=== PATIENT | male | born 1985 | race Two or more races ===

== ENCOUNTER 2016-06-10 15:00 | Emergency (ER) | payer SELFPAY ==
[~2016-06-10] VITALS: Ht 165.1 cm; Wt 62.6 kg
[2016-06-10 15:03] VITALS: BP 133/83
[2016-06-10] MEDS ORDERED: LIDOCAINE 1% / SOD BICARB 8.4% 20 ML VIAL. IJ ONE (15:15)
[2016-06-10] MEDS ORDERED: DIPHTH,PERTUSS(ACELL),TET TOX 0.5 ML DISP.SYRIN. VAX IM ONE (15:15)
--- NOTE | 2016-06-10 15:58 | PHYS DOC ---
Past Medical History Past Medical History: No Pertinent History Past Surgical History: No Surgical History Alcohol Use: Occasionally Drug Use: None Adult General Chief Complaint Chief Complaint: LACERATION/AVULSION HPI HPI Patient is a 30 year old male with no significant medical history who presents with right cheek contusion and laceration. Patient states he was playing soccer when somebody head butted him. Patient denies any loss of consciousness. Review of Systems Review of Systems Constitutional: Denies fever or chills [] Eyes: Denies change in visual acuity, redness, or eye pain [] HENT: Denies nasal congestion or sore throat [] Respiratory: Denies cough or shortness of breath [] Cardiovascular: No additional information not addressed in HPI [] GI: Denies abdominal pain, nausea, vomiting, bloody stools or diarrhea [] : Denies dysuria or hematuria [] Musculoskeletal: Denies back pain or joint pain [] Integument: Facial contusion and facial laceration Neurologic: Denies headache, focal weakness or sensory changes [] Endocrine: Denies polyuria or polydipsia [] Current Medications Current Medications Current Medications Medications (Trade) Dose Ordered Sig/Benji Start Time Stop Time Status Last Admin Dose Admin Diphtheria/ Tetanus/Acell Pertussis (Boostrix) 0.5 ml ONCE ONCE 06/10/16 15:15 06/10/16 15:23 DC Lidocaine/Sodium Bicarbonate (Buffered Lidocaine 1%) 20 ml 1X ONCE 06/10/16 15:15 06/10/16 15:23 DC Allergies Allergies Allergies Coded Allergies Type Severity Reaction Last Updated Verified No Known Drug Allergies 06/10/16 No Physical Exam Physical Exam Constitutional: Well developed, well nourished, no acute distress, non-toxic appearance. [] HENT: Normocephalic, atraumatic, bilateral external ears normal, oropharynx moist, no oral exudates, nose normal. [] Eyes: PERRLA, EOMI, conjunctiva normal, no discharge. [] Neck: Normal range of motion, no tenderness, supple, no stridor. [] Cardiovascular:Heart rate regular rhythm, no murmur [] Lungs & Thorax: Bilateral breath sounds clear to auscultation [] Abdomen: Bowel sounds normal, soft, no tenderness, no masses, no pulsatile masses. [] Skin: Right cheek with small contusion. There is a 2 cm laceration over the contusion. Bleeding is well controlled. Back: No tenderness, no CVA tenderness. [] Extremities: No tenderness, no cyanosis, no clubbing, ROM intact, no edema. [] Neurologic: Alert and oriented X 3, normal motor function, normal sensory function, no focal deficits noted. [] Psychologic: Affect normal, judgement normal, mood normal. [] Current Patient Data Vital Signs Vital Signs Date Time Temp Pulse Resp B/P Pulse Ox O2 Delivery O2 Flow Rate FiO2 06/10/16 15:03 97.8 70 16 99 Room Air 97.8 EKG EKG [] Radiology/Procedures Radiology/Procedures Indication: [] Right cheek laceration Procedure: The patient was placed in the appropriate position and anesthesia around the laceration was 1% buffered lidocaine adequate amount. The area was then cleaned with 20 mL of normal saline and Betadine. The laceration was closed with 5 interrupted sutures using 6. 0 Prolene. The area was covered with a Band-Aid Total repaired wound length: Approximately 2 cm Other Items: none The patient tolerated the procedure well Complications: none Course & Med Decision Making Course & Med Decision Making Pertinent Labs and Imaging studies reviewed. (See chart for details) Evaluation shows patient has right cheek contusion with a laceration over the contusion. His tetanus was not up-to-date, he received Boostrix in the ED. The laceration was closed as noted in procedures. He was provided wound care instructions as well as return precautions. Dragon Disclaimer Dragon Disclaimer This electronic medical record was generated, in whole or in part, using a voice recognition dictation system. Departure Departure Impression: Primary Impression: Facial contusion Additional Impression: Facial laceration Disposition: 01 HOME, SELF-CARE Condition: STABLE Referrals: NO PCP (PCP) Follow up with your own doctor or the emergency room in 5 days for suture removal Patient Instructions: Facial Laceration, Facial or Scalp Contusion Additional Instructions: You have a facial contusion with a laceration over the contusion, apply ice to to the area. Keep the area clean and dry. You can shower. Apply Neosporin to the area twice a day. Come back to the ED or follow up with your own doctor in 5 days for suture removal. Problem Qualifiers Primary Impression: Facial contusion Encounter type: initial encounter Qualified Code: S00.83XA - Contusion of other part of head, initial encounter Additional Impression: Facial laceration Encounter type: initial encounter Qualified Code: S01.81XA - Laceration without foreign body of other part of head, initial encounter ROSAMARIA WESTFALL APRN Jun 10, 2016 15:58
== END 2016-06-10 16:16 | disposition home or self-care (01) ==
LOC: ER 15:00
DX: S01.411A Laceration without foreign body of right cheek and temporomandibular area, initial encounter (principal); W51.XXXA Accidental striking against or bumped into by another person, initial encounter; Y93.66 Activity, soccer; Y92.89 Other specified places as the place of occurrence of the external cause; Y99.8 Other external cause status
CPT/HCPCS: 12011; 90471; 90715; 99283-25

== ENCOUNTER 2016-06-16 20:04 | Emergency (ER) | payer SELFPAY ==
[~2016-06-16] VITALS: Ht 167.6 cm; Wt 62.6 kg
[2016-06-16 20:11] VITALS: BP 144/91
--- NOTE | 2016-06-16 20:19 | PHYS DOC ---
Past Medical History Past Medical History: No Pertinent History Past Surgical History: No Surgical History Alcohol Use: Occasionally Drug Use: None Adult General Chief Complaint Chief Complaint: SUTURE/STAPLE REMOVAL [facility] HPI Patient is a 30 year old male presents emergency Department requesting sutures be removed from his right cheek. Patient laceration to his right cheek 6 days ago when he was playing soccer. He denies any complications with the laceration. Review of Systems Review of Systems Constitutional: Denies fever or chills [] Eyes: Denies change in visual acuity, redness, or eye pain [] HENT: Denies nasal congestion or sore throat [] Respiratory: Denies cough or shortness of breath [] Cardiovascular: No additional information not addressed in HPI [] GI: Denies abdominal pain, nausea, vomiting, bloody stools or diarrhea [] : Denies dysuria or hematuria [] Musculoskeletal: Denies back pain or joint pain [] Integument: Denies rash or skin lesions [] Neurologic: Denies headache, focal weakness or sensory changes [] Endocrine: Denies polyuria or polydipsia [] Allergies Allergies Allergies Coded Allergies Type Severity Reaction Last Updated Verified No Known Drug Allergies 06/10/16 No Physical Exam Physical Exam Constitutional: Well developed, well nourished, no acute distress, non-toxic appearance. [] HENT: Normocephalic, bilateral external ears normal, oropharynx moist, no oral exudates, nose normal. Approximate 2.5 cm laceration to the right cheek 5, 6-0 Prolene sutures. There is no wound margin separation, erythema, swelling or purulent drainage. Eyes: PERRLA, EOMI, conjunctiva normal, no discharge. [] Neck: Normal range of motion, no tenderness, supple, no stridor. [] Cardiovascular:Heart rate regular rhythm, no murmur [] Lungs & Thorax: Bilateral breath sounds clear to auscultation [] Abdomen: Bowel sounds normal, soft, no tenderness, no masses, no pulsatile masses. [] Skin: Warm, dry, no erythema, no rash. [] Back: No tenderness, no CVA tenderness. [] Extremities: No tenderness, no cyanosis, no clubbing, ROM intact, no edema. [] Neurologic: Alert and oriented X 3, normal motor function, normal sensory function, no focal deficits noted. [] Psychologic: Affect normal, judgement normal, mood normal. [] Current Patient Data Vital Signs Vital Signs Date Time Temp Pulse Resp B/P Pulse Ox O2 Delivery O2 Flow Rate FiO2 06/16/16 20:11 97.8 74 18 99 Room Air 97.8 EKG EKG [] Radiology/Procedures Radiology/Procedures Procedure note: 5, 6-0 Prolene stitches were removed by myself. Patient tolerated the procedure well. Course & Med Decision Making Course & Med Decision Making Pertinent Labs and Imaging studies reviewed. (See chart for details) [] Dragon Disclaimer Dragon Disclaimer This electronic medical record was generated, in whole or in part, using a voice recognition dictation system. Departure Departure Impression: Primary Impression: Visit for wound check Additional Impression: Visit for suture removal Disposition: HOME, SELF-CARE Condition: IMPROVED Referrals: NO PCP (PCP) Patient Instructions: Suture Removal-Brief, Wound Check Additional Instructions: 1. The stitches came out without complications. 2. Review the discharge instructions provided for self-care and reasons to return the emergency department. 3. Follow-up with a primary care doctor. Questions or concerns about wound healing or other medically related to questions. Problem Qualifiers ELOISE LOPEZ Jun 16, 2016 20:19
== END 2016-06-16 20:24 | disposition home or self-care (01) ==
LOC: ER 20:04
DX: S01.411D Laceration without foreign body of right cheek and temporomandibular area, subsequent encounter (principal); X58.XXXD Exposure to other specified factors, subsequent encounter; Y92.322 Soccer field as the place of occurrence of the external cause; Y99.8 Other external cause status
CPT/HCPCS: 99281